=== PATIENT | female | born 1995 | race Caucasian/White ===

== ENCOUNTER 2019-01-14 11:04 | Emergency (ER) | payer MEDICAID, SELFPAY ==
[2019-01-14 11:05] VITALS: BP 135/80; PULSE 86; RESP 18; TEMP 36.4; O2SAT 97; BMI 31.1
--- NOTE | 2019-01-14 12:01 | US_ITS ---
STUDY: FIRST TRIMESTER OBSTETRICAL ULTRASOUND REASON FOR EXAM: Female, 23 years old. Bleeding. LMP: January 05, 2019. TECHNIQUE: Transvaginal TECHNICAL QUALITY: Adequate. PRIOR ULTRASOUND: None. FINDINGS: There is no demonstrated intrauterine gestational sac. There is no demonstrated yolk sac. The placenta is non-visualized. There is no demonstrated embryo ( pole). The uterus measures 8.1 cm x 5.4 cm x 4.4 cm. There is no demonstrated uterine fibroid. The cervix is open. Fluid is seen within the endometrium. The right ovary measures 3.1 cm x 2.3 cm x 1.6 cm. There is a 1.3 cm x 1.2 cm x 1.1 cm follicle. There is no visualized right adnexal mass or complex lesion. The left ovary measures 3.6 cm x 2.9 cm x 1.3 cm. There is no left ovarian cyst. There is no visualized left adnexal mass or complex lesion. Mild to moderate degree of free fluid in the cul-de-sac. US/Transvaginal w/Preg US IMPRESSION: No intrauterine gestation is seen at this time. Dominant follicle in the right ovary. The cervix is open with a small amount of fluid within the endocervical canal. Findings are suggestive of a spontaneous . Correlation with beta hCG is recommended. Electronically Signed: Julian Henriquez, at 14:04 EDT , Service support ,
--- NOTE | 2019-01-14 12:03 | ED.DCSUM_ITS ---
History of Present Illness Chief Complaint: Vag Bld, Preg Informant: Patient Onset: Today Current Severity: Mild Narrative: Patient reports having cramping vaginal bleeding for about a day or 2, she indicates she took some home test and they were positive for few times, she believes she is 2 to 3 weeks , [facility] she indicates they pari a serum blood test she does not have those results and they discharged her home she was concerned that that was insufficient evaluation and she came to the emergency department. 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 and history of ectopic her menstrual cycles usually on time she has no other complaints Past Medical History - Allergies and Home Meds Allergies/Adverse Reactions: Allergies No Known Allergies Allergy (Verified 01/14/19 11:05) Primary Care Physician: Vidhya Mendez PA [Primary Care Provider] - Past Medical History: - - She denies as above see above Smoking Status: Current some day smoker Review of Systems General: Denies: Chills, Fever, Sweats Eyes: Denies: Visual changes - bilaterally, Diplopia ENT: Denies: Rhinorrhea, Sore throat Cardiovascular: Denies: Chest pain, Palpitations Respiratory: Denies: Dyspnea, Cough, Dyspnea on exertion Gastrointestinal: Denies: Abdominal pain, Nausea, Vomiting, Diarrhea, Melena, Hematochezia Genitourinary: Denies: Dysuria, Hematuria, Frequency Musculoskeletal: Denies: Back pain, Extremity Pain Skin: Denies: Rash, Wounds Neurological: Denies: Headache, Weakness, Numbness Physical Exam Vital Signs/Narrative: Vital Signs Temp Pulse Resp BP Pulse Ox 01/14/19 11:05 97.6 F L 86 18 135/80 H 97 General: Well nourished, Well developed, No Acute Distress Head: Normocephalic, Atraumatic Eyes: Perrl, EOMI ENT: Moist mucous membranes, No rhinorrhea Neck: Supple, Nontender Cardiovascular: Regular rate, Regular rhythm, No murmurs Respiratory: No distress, CTA bilaterally, Chest nontender Abdomen: Soft, Nontender, Nondistended, Normal bowel sounds : - - Deferred at this time she is no abdominal discomfort Back: Nontender, Normal Inspection Extremities: Nontender, No edema Skin: Normal color, No rash Neurological: Alert, Oriented x3, Cranial nerves II-XII grossly intact, Normal Strength, Normal Sensation Psychological: Normal affect, Normal Mood Diagnostic/Tx/Re-eval - Medical Decision Making The patient will undergo screening labs quant hCG ultrasound reevaluation on. Her screening labs are generally unremarkable her quant is 121, her pelvic ultrasound shows no signs of intrauterine , no signs of ectopic no free fluid the cervix appears open with fluid in it consistent with possible spontaneous AB see those reports She is deferred pelvic exam I have explained all the above to her that the exact etiology of bleeding remains unclear she needs repeat quant and follow-up with her humanities coordinator to the [facility] system in the next few days Tylenol for pain and return for change in symptoms and she agrees and understands Home stable Final impression with vaginal bleeding ED Disposition - Plan for ED Patient: Diagnosis: Vaginal bleeding during Instructions: POSSIBLE MISCARRIAGE (Threatened ) Referrals: Vidhya Mendez PA [Primary Care Provider] - Additional Instructions: Tylenol for pain, please follow-up with your [facility] gynecology service in a day or 2 for repeat test and further management return for change in symptoms
[2019-01-14 13:12] LABS: Absolute Lymphocyte Count 1.76 X10^3/uL (0.83-4.51); Basophil# 0.01 X10^3/uL; Basophil% 0.2 % (0-1); Eosinophils% 1.6 % (0-5); Hematocrit 41.5 % (37-47); Hemoglobin 14.3 g/dL (12.0-15.0); Lymphocyte # 1.76 X10^3/ul (4.0); Lymphocyte % 28.2 % (19-41); Mean Corp Hgb Conc 34.5 g/dL (32-36); Mean Corpuscular Hgb 30.6 pg (27.0-32.0); Mean Corpuscular Volume 88.9 fL (81-99); Mean Platelet Vol. 10.8 fl (6.2-12.0); Monocyte# 0.38 X10^3/uL; Monocyte% 6.1 % (0-10); NRBC Flagged by Analyzer 0 % (0-5); Neutrophil # 3.98 X10^3/uL (2.7-7.7); Neutrophil % 63.6 % (47-70); Platelet Count 205 K/mm3 (150-450); RBC Distribution Width CV 11.9 % (11.6-14.6); RBC Distribution Width SD 38.5 fl (35.1-43.9); Red Blood Count 4.67 M/mm3 (4.2-5.4); White Blood Count 6.3 K/mm3 (4.4-11.0)
[2019-01-14 13:26] LABS: hCG Titer Quant., Serum 121 mIU/mL (1-3)
[2019-01-14 13:59] LABS: Bacteria 0 SEEN /hpf (None Seen); Mucous, Urine 0 SEEN /hpf (<or=2+); White Blood Cells 0 SEEN /hpf (0-5)
[2019-01-14 14:03] LABS: Color, Urine Yellow (Yellow); Glucose, Dipstick Normal (Normal); Ketone-Dipstick Negative (Negative); Leukocyte Esterase-Dipstick Negative /ul (Negative); Nitrite-Dipstick Negative (Negative); Occult Blood-Urine 50 /ul (Negative); Protein-Dipstick Negative (Negative); Urine Bilirubin Dipstick Negative (Negative); Urine Clarity Clear (Clear); Urine Urobilinogen Normal (Normal)
[2019-01-14 14:17] VITALS: RESP 18
[2019-01-14 14:21] LABS: Red Blood Cells-Urine 0-5 SEEN /hpf (0-5); Squamous Epithelial Cells - UA 0-5 SEEN /hpf (5-10)
[2019-01-14 14:49] VITALS: PULSE 64; RESP 16; O2SAT 100
== END 2019-01-14 14:49 | disposition home or self-care (01) ==
PROVIDERS: Emergency Provider Emergency Medicine; Family Provider Physician Assistant Medical; PCP Physician Assistant Medical
DX: O20.9 Hemorrhage in early pregnancy, unspecified (principal); O99.330 Smoking (tobacco) complicating pregnancy, unspecified trimester; F17.200 Nicotine dependence, unspecified, uncomplicated; Z3A.00 Weeks of gestation of pregnancy not specified
CPT/HCPCS: 76817; 81001; 84702; 85025; 86900; 99282

== ENCOUNTER → 2020-08-10 | Outpatient (CLI) | payer BC, MEDICAID, SELFPAY | END | disposition home or self-care (01) | LOC: LABSPEC 15:51 | PROVIDERS: PCP Physician Assistant Medical; Referring Provider Obstetrics & Gynecology; Visit Provider Obstetrics & Gynecology | DX: Z03.818 Encounter for observation for suspected exposure to other biological agents ruled out (principal) | CPT/HCPCS: 87635; C9803; U0005; U0003 ==

== ENCOUNTER 2020-08-17 09:40 | Inpatient (IN) | payer BC, MEDICAID, SELFPAY ==
--- NOTE | 2020-08-15 16:26 | HP.PCM_ITS ---
History Date of Admission: 08/17/20 Final KASSANDRA: 08/24/20 Gestational age: 39 Weeks History of this : Patient presents for repeat Surgical History: Surgical History (Last Updated 08/15/20 @ 16:[address] Juan José Pascal MD) Previous section Z98.891 Allergies No Known Allergies Allergy (Verified 01/14/19 11:05) Home Medications: Home Medications Hydrocodone Bitart/Apap 5-325 [[place] 5MG-325MG] 1 tablet PO Q6H PRN PRN #20 tablet 07/30/16 Multivitamin [Daily Multiple Vitamin] 1 each PO DAILY 07/30/16 Smoking Status: Former smoker History Past Pregnancies: Past Pregnancies Delivery Date Name GA/ Weeks Outcome Route Wt Infant Sex Labor Length Anesthesia Delivery Location Provider FOB Labs: See [facility] H&P Physical Exam General: Alert, Oriented x3 Cardiovascular: Regular rate, Regular Rhythm Lungs: Clear to auscultation, Normal air movement Abdomen: Soft, Non Tender, Non-Distended, Gravid Neurological: Cranial nerves II-XII grossly intact 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 Admit to L&D Proceed with repeat - informed consent signed LGA with polyhydramnios COVID test ordered Routine care
[2020-08-17] VITALS (17 sets, daily range): BP systolic 94–153; BP diastolic 41–99; PULSE 63–96; RESP 16–18; TEMP 36.1–36.7; O2SAT 95–98; BMI 37.3
[2020-08-17] MEDS: Lactated Ringers 1,000 ML 999 ML IV (10:00)
[2020-08-17 10:19] LABS: Absolute Lymphocyte Count 2.11 X10^3/uL (0.83-4.51); Basophil# 0.02 X10^3/uL; Basophil% 0.2 % (0-1); Eosinophil# 0.08 X10^3/uL; Eosinophils% 0.8 % (0-5); Hematocrit 35.6 % (37-47); Hemoglobin 11.6 g/dL (12.0-15.0); Lymphocyte # 2.11 X10^3/ul (4.0); Lymphocyte % 20.9 % (19-41); Mean Corp Hgb Conc 32.6 g/dL (32-36); Mean Platelet Vol. 11.7 fl (6.2-12.0); Monocyte# 0.86 X10^3/uL; Monocyte% 8.5 % (0-10); NRBC Flagged by Analyzer 0 % (0-5); Neutrophil # 6.95 X10^3/uL (2.7-7.7); Neutrophil % 68.9 % (47-70); Platelet Count 233 K/mm3 (150-450); RBC Distribution Width CV 12.8 % (11.6-14.6); RBC Distribution Width SD 41.5 fl (35.1-43.9); White Blood Count 10.1 K/mm3 (4.4-11.0)
[2020-08-17] MEDS: Acetaminophen 500 MG Tablet 1000 MG PO ×3 (11:32→23:46)
[2020-08-17] MEDS: Lactated Ringers 1,000 ML 150 ML IV (11:33)
[2020-08-17] MEDS: Sodium Citrate/Citric Acid 30 ML UDC PO (11:48)
[2020-08-17] MEDS: Cefazolin 2 GM in 0.9% Normal Saline 100 ML IV (11:51)
--- NOTE | 2020-08-17 12:33 | OP.PCM_ITS ---
Delivery Classification: Scheduled Final KASSANDRA: 08/24/20 - start time 1210 end time 1248 Final KASSANDRA Source: US <20 weeks Gestational age: 39 Weeks and 0 Days flying teacher: Aaron Simpson Type of Anesthesia:: Spinal Special Medications: none Implants Used: none Date of Procedure: 08/17/20 - Repeat Low Transverse C/S Pre-Operative Diagnosis: Term gestation, Previous CS, LGA fetus Post-Operative Diagnosis: Same, Macrosomia Indications: LGA, Term gestation Indications for : Repeat Elective Description of Procedure: After informed consent was obtained the patient was taken the operating room she was given spinal anesthesia. She was then placed in the supine position. She was prepped and draped in the normal sterile fashion. Anesthesia was found to be adequate. At this time a Pfannenstiel skin incision was made with a knife was carried down to the underlying layer of the fascia. The fascial incision was then extended laterally using curved [place] scissor. attension was then turned to the superior aspect of the fascial edge was grasped with 2 straight [place] clamps tented up and the rectus muscle dissected off sharply using curved [place] scissor. Attention was then turned to the inferior aspect where again Petra clamps were placed in the rectus muscles were tented up and the fascia was dissected off sharply using the curved [place] scissor. Rectus muscles were then in the midline sharply and peritoneum was entered bluntly. Gentle opposing traction was placed. At this time the vesicouterine peritoneum was identified. Scalpel was used to make a uterine incision in a low transverse fashion. The uterus was then entered bluntly gentle opposing traction was placed to extend this incision. Membranes were ruptured clear. Infant's head was brought to the uterine incision was delivered atraumatically. delayed cord clamping performed. infants nose and mouth suctioned. Cord was clamped and cut infant was handed to the waiting nursery team. The Placenta was removed from the uterus. The uterus was then removed from the abdominal cavity. The uterus was cleared of all clots and debris using a lap. At this time the uterine incision was reapproximated using #1 Vicryl in a running locked fashion. followed by a second imbricating layer with 1-0 vicryl. Hemostasis was appreciated. Posterior cul-de-sac was then cleared of all clots and debris. Uterus was placed back in the abdominal cavity. Gutters were cleared of all clots and debris. Uterine incision was reevaluated and noted to be of excellent hemostasis. At this time the peritoneum and muscle were grasped with Kellys reapproximated using #2 Vicryl suture in a running fashion. Fascia was then reapproximated using #1 Vicryl in a running fashion. Subcu layer was reapproxim ated with #2 0 plain gut suture in an interrupted fashion. Subcu layer was closed using 4-0 Monocryl in a subcu fashion. Dry sterile dressing was applied. Instrument lap needle count correct ?2. Anticipated normal postoperative course. Amniotic Membrane Rupture Type: Artificial Amniotic Fluid Description: Clear Placenta Disposition: [facility] Specimen(s) sent to pathology: none Drain: Ulrich to straight drain Fluids Replaced: 1000cc Cord Entanglement: None Cord Vessel Description: 3 Vessels Esitmated Blood Loss (ml): 650 Gender: Male (1 minute): 8 - weight 10lb 3oz (5 minute): 9 Antibiotic Given: Ancef 2 grams IV x1 Pt instructed on risks of surgery: Bleeding, Anesthesia Risks, Infection, Need for Future C-Sections, Injury to surrounding structure(s) including bowel and bladder Complications: None - Admit VTE Documentation VTE Present on Admission: Yes VTE Mechan Device Prophylaxis: SCD's VTE Pharm Prophylaxis ordered?: Yes
[2020-08-17] MEDS: Oxytocin 30 units/NS 500 ml 30 UNITS/500 ML IV.SOLN 167 UNITS IV (13:05)
[2020-08-17] MEDS: Lactated Ringers 1,000 ML 100 ML IV (13:20)
[2020-08-17] MEDS: Ketorolac 30 MG/ML Syringe IV (18:48)
[2020-08-17] MEDS: 0.9% Saline Lock 10 ML Syringe IV (18:49)
[2020-08-18] MEDS: 0.9% Saline Lock 10 ML Syringe IV ×3 (00:29→12:50)
[2020-08-18] MEDS: Ketorolac 30 MG/ML Syringe IV ×3 (00:29→12:50)
[2020-08-18] MEDS: Enoxaparin 40 MG/0.4 ML Syringe SC (00:29)
[2020-08-18 00:39] VITALS: BP 96/45; PULSE 77; RESP 18; TEMP 36.5; O2SAT 98
[2020-08-18 04:48] VITALS: BP 95/40; PULSE 75; RESP 18; TEMP 36.7; O2SAT 98
[2020-08-18 05:06] LABS: Hematocrit 31.6 % (37-47); Hemoglobin 10.1 g/dL (12.0-15.0); Mean Corpuscular Hgb 28.7 pg (27.0-32.0); Mean Corpuscular Volume 89.8 fL (81-99); Mean Platelet Vol. 11.2 fl (6.2-12.0); Platelet Count 225 K/mm3 (150-450); RBC Distribution Width CV 12.6 % (11.6-14.6); RBC Distribution Width SD 41.2 fl (35.1-43.9); Red Blood Count 3.52 M/mm3 (4.2-5.4); White Blood Count 16.2 K/mm3 (4.4-11.0)
[2020-08-18] MEDS: Acetaminophen 500 MG Tablet 1000 MG PO ×4 (05:32→23:47)
[2020-08-18 08:19] VITALS: BP 96/43; PULSE 71; RESP 18; TEMP 36.5
--- NOTE | 2020-08-18 08:26 | PCM.PN.OB ---
Subjective: Patient seen at bedside, doing well. Patient reports does have more pain today than yesterday. She has been up ambulating. Voiding without difficulty. Passing flatus. Denies any nausea or vomiting. Breast-feeding. Considering discharge home today. - Physical Exam Vitals/I&O's: Vital Signs Temp Pulse Resp BP Pulse Ox 97.7 F L 71 18 96/43 L 98 08/18/20 08:19 08/18/20 08:19 08/18/20 08:19 08/18/20 08:19 08/18/20 04:48 Oxygen Delivery Method Room Air Weight: 107.955 kg Body Mass Index (BMI) 37.3 Intake and Output for Last 24 Hours 08/16/20 08/17/20 08/18/20 23:59 23:59 23:59 Intake Total 4465 / 4465 Output Total 1400 / 1400 900 / 900 Balance 3065 / 3065 -900 / -900 General: Alert, Oriented x3 Abdomen: Soft, Non Tender, Non-Distended, - - fundus firm, dressing dry and intact Extremities: No Calf Tenderness Neurological: Cranial nerves II-XII grossly intact Laboratory Results 08/17/20 10:00: WBC 10.1, RBC 4.00 L, Hgb 11.6 L, Hct 35.6 L, MCV 89.0, MCH 29.0, MCHC 32.6, RDW Std Deviation 41.5, RDW Coeff of Ira 12.8, Plt Count 233, MPV 11.7, Immature Gran % (Auto) 0.700, Neut % (Auto) 68.9, Lymph % (Auto) 20.9, [place] % (Auto) 8.5, Eos % (Auto) 0.8, Baso % (Auto) 0.2, Absolute Neuts (auto) 7.0, Absolute Lymphs (auto) 2.11, Nucleated RBC % 0 08/17/20 10:00: Blood Type A POSITIVE, Antibody Screen NEGATIVE 08/18/20 05:00: WBC 16.2 H, RBC 3.52 L, Hgb 10.1 L, Hct 31.6 L, MCV 89.8, MCH 28.7, MCHC 32.0, RDW Std Deviation 41.2, RDW Coeff of Ira 12.6, Plt Count 225, MPV 11.2 Current Medications Acetaminophen (Acetaminophen 500 Mg Tablet) 1,000 mg PO Q6H [facility] Last Admin: 08/18/20 05:32 Dose: 1,000 mg Documented by: Bisacodyl (Bisacodyl 10 Mg Suppository) 10 mg RC UD PRN PRN Reason: If no BM Enoxaparin Sodium (Enoxaparin 40 Mg/0.4 Ml Syringe) 40 mg SC DAILY@0100 [facility] Last Admin: 08/18/20 00:29 Dose: 40 mg Documented by: Hydrocortisone (Hydrocortisone 2.5% Crm) 1 applic TOPICAL TID PRN PRN; Protocol PRN Reason: Discomfort Lactated Ringer's () 1,000 mls @ 100 mls/hr IV .Q10H [facility] Last Admin: 08/17/20 23:47 Dose: Not Given Documented by: Ibuprofen (Ibuprofen 600 Mg Tablet) 600 mg PO Q6H [facility] Ketorolac Tromethamine (Ketorolac 30 Mg/Ml Syringe) 30 mg IV Q6H [facility]; Protocol Stop: 08/18/20 12:31 Last Admin: 08/18/20 06:32 Dose: 30 mg Documented by: Methylergonovine Maleate (Methylergonovine 0.2 Mg/Ml Ampul) 0.2 mg IM X1 PRN PRN Reason: Uterine Atony Ondansetron HCl (Ondansetron 4 Mg/2 Ml Vial) 4 mg IV Q4H PRN PRN PRN Reason: Nausea Oxycodone HCl (Oxycodone 5 Mg Tablet) 5 - 10 mg PO Q4H PRN PRN PRN Reason: Pain Score 4-10 Prochlorperazine Edisylate (Prochlorperazine 10 Mg/2 Ml Vial) 10 mg IV Q6H PRN PRN PRN Reason: NAUSEA Senna/Docusate Sodium (Senna/Docusate Sodium 1 Tablet) 1 - 2 tablet PO DAILY [facility] Simethicone (Simethicone 80 Mg Tablet) 80 mg PO P[facility]S PRN PRN Reason: Indigestion/stomach pain Sodium Chloride (0.9% Saline Lock 10 Ml Syringe) 5 - 15 ml IV UD PRN PRN Reason: SALINE FLUSH Last Admin: 08/18/20 06:33 Dose: 10 ml Documented by: Medical Necessity - Tobacco Use Smoking Status: Former smoker Assessment/Plan POD#1, doing well- some Post op pain 1) routine Post care 2) pain mgmt 3) abdominal binder 4) possible dc home today or tomorrow
--- NOTE | 2020-08-18 08:31 | PCM.DCCSEC ---
Discharge Diet: No Restrictions Discharge Activity: Return to Normal Activity, May Not Drive - for 2 weeks, May not drive while taking narcotic pain medications., May Shower, May Take a Tub Bath - in 7 days. May resume sexual activity in: 4-6 weeks Lifting Restrictions: 20 pounds Additional Activity Instructions:: Nothing in the vagina for 4-6 weeks. You may return to work/school in 6 weeks. Call your doctor if your incision/area has: Continuous Slow Oozing, Sudden Increased Bleeding, Increased Pain/ Swelling, Increased Redness, Foul Smelling Discharge Call your doctor if you observe: Fever of 101 or Higher, Using more than one pad per hour - for 2 hours Suture Line Care: Avoid Pulling/Pushing, Avoid Pinching/Bending Cleanse incision/area with: Keep Dressing Clean & Dry - remove dressing on post op day #7 unless saturated before that. Additional Instructions: If you experience any of the following, contact your healthcare provider. Bleeding that soaks a pad every hour for 2 hours Fever 100.4 or higher Unrelieved incision or abdominal pain Swelling, redness, discharge or bleeding from your incision or episiotomy site Your incision begins to separate Problems urinating (including inability to urinate or burning while urinating). Visual changes Severe headache Flu-like symptoms Pain or redness in one of both of your breasts Pain, warmth, tenderness or swelling in your legs, especially the calf area Frequent nausea and vomiting Symptoms of depression or anxiety If you experience any of the following, call 911 or go to the nearest Emergency Room. Chest pain Problems breathing Seizure activity Partial or complete paralysis of a body part, slurred speech, weakness or drooping of the face, or a sudden inability to walk or hold your balance Allergies/Adverse Reactions: Allergies No Known Allergies Allergy (Verified 08/17/20 10:15) Medications to take at Discharge Multivitamin [Daily Multiple Vitamin] 1 each PO DAILY 07/30/16 Omeprazole Magnesium [Prilosec Otc] 20 mg 08/17/20 Acetaminophen [Tylenol] 1,000 mg PO Q6H #60 tab 08/18/20 Ibuprofen [Motrin] 600 mg PO Q6H #60 tab 08/18/20 Oxycodone [Oxyir] 5 - 10 mg PO Q4H PRN PRN 5 Days #14 tablet 08/18/20 Senna/Docusate Sodium [Senokot-S] 1 - 2 tab PO DAILY #30 tab 08/18/20 SimETHICONE [Mylicon] 80 mg PO [facility]S PRN #30 tab 08/18/20 The following prescriptions were given: Ibuprofen [Motrin] 600 mg PO Q6H #60 tab Transmission Status: Pending to [id number] SimETHICONE [Mylicon] 80 mg PO PCHS PRN #30 tab PRN Reason: Indigestion/stomach pain Transmission Status: Pending to [facility] Oxycodone [Oxyir] 5 - 10 mg PO Q4H PRN PRN 5 Days #14 tablet PRN Reason: Pain Score 4-10 Transmission Status: Sent to [facility] Senna/Docusate Sodium [Senokot-S] 1 - 2 tab PO DAILY #30 tab Transmission Status: Pending to [facility] Acetaminophen [Tylenol] 1,000 mg PO Q6H #60 tab Transmission Status: Pending to [facility] Follow-Up: Call to make an appointment with your doctor for an incision check in 1-2 weeks. You will also need a 6 week post- follow up appointment. Test results from this visit will be discussed in further detail at your follow-up appointment, if applicable. Please Follow Up With: Sylvia Neal MD - Call to make an appointment for an incision check in 1-2 [phone] When: You will need a post- check in 6 weeks. Primary Care Physician: iVdhya Mendez PA [Primary Care Provider] -
[2020-08-18] MEDS: Senna/Docusate Sodium 1 Tablet PO ×2 (11:02→11:37)
[2020-08-18 11:34] VITALS: BP 111/61; PULSE 79; RESP 16; TEMP 36.6
[2020-08-18 13:42] VITALS: BP 115/48; PULSE 73; RESP 18; TEMP 36.6
[2020-08-18] MEDS: oxyCODONE 5 MG Tablet PO ×2 (13:57→20:13)
[2020-08-18] MEDS: Ibuprofen 600 MG Tablet PO (18:25)
[2020-08-18 20:07] VITALS: BP 106/54; PULSE 79; RESP 18; TEMP 36.6
--- NOTE | 2020-08-18 20:17 | NURSING ---
Pt did not want this nurse to check fundal height at this time d/t being in too much pain.
[2020-08-19] MEDS: Ibuprofen 600 MG Tablet PO ×3 (00:35→11:46)
[2020-08-19] MEDS: Enoxaparin 40 MG/0.4 ML Syringe SC (00:35)
[2020-08-19 02:03] VITALS: BP 99/42; PULSE 81; RESP 18; TEMP 36.7
[2020-08-19] MEDS: Acetaminophen 500 MG Tablet 1000 MG PO ×2 (05:37→11:47)
--- NOTE | 2020-08-19 07:48 | PCM.PN.OB ---
Subjective: Patient seen at bedside, doing well. Patient reports good pain control. Mild lochia. Jdbixm-[id number]-[id number] difficulty with sore nipples but getting better. Patient denies any nausea or vomiting. Patient is ready for DC home today. - Physical Exam Vitals/I&O's: Vital Signs Temp Pulse Resp BP Pulse Ox 98.0 F 81 18 99/42 L 98 08/19/20 02:03 08/19/20 02:03 08/19/20 02:03 08/19/20 02:03 08/18/20 04:48 Oxygen Delivery Method Room Air Weight: 107.955 kg Body Mass Index (BMI) 37.3 Intake and Output for Last 24 Hours 08/17/20 08/18/20 08/19/20 23:59 23:59 23:59 Intake Total 4465 / 4465 Output Total 1400 / 1400 900 / 900 Balance 3065 / 3065 -900 / -900 General: Alert, Oriented x3 Abdomen: Soft, Non-Distended, - - fundus firm. Dressing dry and intact Extremities: No Calf Tenderness Neurological: Cranial nerves II-XII grossly intact Current Medications Acetaminophen (Acetaminophen 500 Mg Tablet) 1,000 mg PO Q6H [facility] Last Admin: 08/19/20 05:37 Dose: 1,000 mg Documented by: Bisacodyl (Bisacodyl 10 Mg Suppository) 10 mg RC UD PRN PRN Reason: If no BM Enoxaparin Sodium (Enoxaparin 40 Mg/0.4 Ml Syringe) 40 mg SC DAILY@0100 [facility] Last Admin: 08/19/20 00:35 Dose: 40 mg Documented by: Hydrocortisone (Hydrocortisone 2.5% Crm) 1 applic TOPICAL TID PRN PRN; Protocol PRN Reason: Discomfort Ibuprofen (Ibuprofen 600 Mg Tablet) 600 mg PO Q6H [facility] Last Admin: 08/19/20 06:30 Dose: 600 mg Documented by: Methylergonovine Maleate (Methylergonovine 0.2 Mg/Ml Ampul) 0.2 mg IM X1 PRN PRN Reason: Uterine Atony Ondansetron HCl (Ondansetron 4 Mg/2 Ml Vial) 4 mg IV Q4H PRN PRN PRN Reason: Nausea Oxycodone HCl (Oxycodone 5 Mg Tablet) 5 - 10 mg PO Q4H PRN PRN PRN Reason: Pain Score 4-10 Last Admin: 08/18/20 20:13 Dose: 10 mg Documented by: Prochlorperazine Edisylate (Prochlorperazine 10 Mg/2 Ml Vial) 10 mg IV Q6H PRN PRN PRN Reason: NAUSEA Senna/Docusate Sodium (Senna/Docusate Sodium 1 Tablet) 1 - 2 tablet PO DAILY [facility] Last Admin: 08/18/20 11:37 Dose: 1 tablet Documented by: Simethicone (Simethicone 80 Mg Tablet) 80 mg PO [facility] PRN PRN Reason: Indigestion/stomach pain Sodium Chloride (0.9% Saline Lock 10 Ml Syringe) 5 - 15 ml IV UD PRN PRN Reason: SALINE FLUSH Last Admin: 08/18/20 12:50 Dose: 10 ml Documented by: Medical Necessity - Tobacco Use Smoking Status: Former smoker Assessment/Plan POD#2, doing well routine care pain mgmt dc home
[2020-08-19 08:00] VITALS: BP 116/53; PULSE 79; RESP 16; TEMP 36.9
[2020-08-19] MEDS: oxyCODONE 5 MG Tablet PO (13:12)
[2020-08-19 13:13] VITALS: BP 104/63; PULSE 88; RESP 14; TEMP 37
--- NOTE | 2020-08-19 17:02 | PCM.DC.BLA ---
Discharge Summary Date of Admission: 08/17/20 Date of Discharge: 08/19/20 Summary: pt for a repeat low transverse section at 39 weeks gestation. Patient underwent an uncomplicated repeat low transverse section with a live male infant born weighing 10 pounds 3 ounces. Patient had an uncomplicated postoperative course and was discharged home on postoperative day #2. - Physical Exam Vitals/I&O's: Vital Signs Temp Pulse Resp BP Pulse Ox 98.6 F 88 14 104/63 98 08/19/20 13:13 08/19/20 13:13 08/19/20 13:13 08/19/20 13:13 08/18/20 04:48 Oxygen Delivery Method Room Air Weight: 107.955 kg Body Mass Index (BMI) 37.3 Intake and Output for Last 24 Hours 08/17/20 08/18/20 08/19/20 23:59 23:59 23:59 Intake Total 4465 / 4465 Output Total 1400 / 1400 900 / 900 Balance 3065 / 3065 -900 / -900
== END 2020-08-19 14:00 | disposition home or self-care (01) | DRG 788 ==
PROVIDERS: Admitting Provider Obstetrics & Gynecology; PCP Physician Assistant Medical; Referring Provider Obstetrics & Gynecology; Visit Provider Obstetrics & Gynecology
PROC: 10D00Z1 Extraction of Products of Conception, Low, Open Approach (ICD-10-PCS; CPT 59514; principal; 2020-08-17 11:45)
DX: O40.3XX0 Polyhydramnios, third trimester, not applicable or unspecified (principal); Z3A.39 39 weeks gestation of pregnancy; Z37.0 Single live birth
CPT/HCPCS: 85025; 85027; 86850; 86900; 86901; 99218; 99251; J7120; A4216; G0378; G0463; J2405

== ENCOUNTER 2023-11-04 11:49 | Emergency (ER) | payer BC, MEDICAID, SELFPAY ==
[2023-11-04 11:50] VITALS: BP 119/76; PULSE 65; RESP 14; TEMP 35.7; O2SAT 100; BMI 26.3
--- NOTE | 2023-11-04 12:13 | EDS_ITS ---
HPI History of Present Illness Chief Complaint: Chest Other Detail of Chief Complaint: Possible heart murmur Informant: patient Narrative Narrative: Patient sent from local psychiatry office due to possible heart murmur. The reportedly was a nurse practitioner or PA checking the patient's blood pressure manually. She called in to tell us that she heard a murmur when checking the patient's blood pressure in her left arm but not in her right arm. Patient was sent in for an EKG and further evaluation as needed. Patient denies any chest or arm pain. [facility] Medical History Depression Obesity Home Medications ?Medication ?Instructions ?Recorded ?Last Taken ?Type multivitamin (Daily Multiple 1 ea PO DAILY 07/30/16 07/30/16 History tablet) omeprazole magnesium 20 mg 20 mg Check with primary doctor 08/17/20 Unknown History tablet,delayed release acetaminophen 500 mg tablet 1,000 mg (2 x 500 mg) PO Q6H #60 08/18/20 Unknown Rx tabs ibuprofen 600 mg tablet 600 mg PO Q6H #60 tabs 08/18/20 Unknown Rx sennosides 8.6 mg-docusate sodium 1 - 2 tab PO DAILY #30 tabs 08/18/20 Unknown Rx 50 mg tablet simethicone 80 mg chewable tablet 80 mg PO PCHS PRN 08/18/20 Unknown Rx Indigestion/stomach pain #30 tabs Allergy/AdvReac Type Severity Reaction Status Date / Time No Known Allergies Allergy Verified 08/17/20 10:15 Surgical History Previous section Social History Smoking Status: Former smoker ROS ROS ED Constitutional Constitutional ED: Denies chills or fever(s) Eyes Eyes: Denies discharge from eye(s) ENT ENT ED: Denies discharge from eye(s), rhinorrhea or sore throat Cardiovascular Cardiovascular: Denies chest pain or palpitations Respiratory/Chest Respiratory/Chest: Denies cough or dyspnea Gastrointestinal Gastrointestinal: Denies abdominal pain, nausea or vomiting Musculoskeletal Musculoskeletal: Denies extremity pain Integumentary Denies Abrasions or rash Neurologic Neurologic: Denies headache(s) or weakness Allergic/Immunologic Allergic/Immunologic ED: Denies lip swelling or urticaria EXAM Physical Exam Const Vital Signs: 11/04/23 11:50 Temperature 96.3 F L Temperature Source Temporal Pulse Rate 65 Respiratory Rate 14 Blood Pressure 119/76 Blood Pressure Mean 90 Pulse Ox 100 Oxygen Delivery Method Room Air Positive well nourished and well developed General Appearance ED: well developed HEENT Reports moist mucous membranes Chest Wall inspection of chest normal and palpation of chest normal Resp normal respiratory effort and clear to auscultation bilaterally Cardio regular rate and regular rhythm GI non-tender Palpation: soft Extremity Extremity Narrative: Strong distal pulses throughout. Neuro oriented x3 and no sensory deficits noted Motor Exam: strength 5/5 throughout Psych mental status grossly normal Skin no rashes or lesions noted MDM MDM MDM Narrative Medical decision making narrative: EKG was obtained per nursing protocol. Sinus bradycardia 58 bpm is noted with no acute ischemia. At the time of my exam I hear no cardiac murmurs. I even took the patient's manual blood pressure bilaterally. She has appropriate sounds noted with releasing the pressure for the blood pressure cuff. I described to the patient how a blood pressure is obtained and we listen for the blood to start flowing through the artery after it has been compressed. This will sometimes sound like a murmur as the blood flows through quickly. Patient has had no arm pain, paresthesias, or coolness. I do not suspect that she has any kind of an arterial blockage. Patient was reassured with our evaluation and will follow with her primary care physician. Discharge Plan Triage Chief Complaint: Chest Other ED Provider: Yvette Malone Dx/Rx/DC Orders Clinical Impression: Encounter for medical screening examination Prescriptions: No Action multivitamin [Daily Multiple] 1 EACH tablet 1 ea PO DAILY omeprazole magnesium 20 MG tablet,delayed release (DR/EC) 20 mg sennosides-docusate sodium 1 TABLET tablet 1 - 2 tab PO DAILY Qty: 30 0RF acetaminophen 500 MG tablet 1,000 mg PO Q6H Qty: 60 0RF ibuprofen 600 MG tablet 600 mg PO Q6H Qty: 60 0RF simethicone 80 MG tablet 80 mg PO PCHS PRN (Reason: Indigestion/stomach pain) Qty: 30 0RF Primary Care Provider: Vidhya Mendez Referrals: Vidhya Mendez PA [Primary Care Provider] - As Needed Activity Restrictions/Additional Instructions: As discussed, your EKG is normal. Your heart sounds are normal. You have strong pulses in both arms with no evidence of blockage to the vessels. Print Language: Scottish Disposition Disposition: Home, Self Care
--- NOTE | 2023-11-04 12:17 | EKG12_ITS ---
Test Reason : Blood Pressure : / mmHG Vent. Rate : 058 BPM Atrial Rate : 058 BPM P-R Int : 144 ms QRS Dur : 080 ms QT Int : 422 ms P-R-T Axes : 061 041 049 degrees QTc Int : 414 ms Sinus bradycardia Otherwise normal ECG Confirmed by Ian Ahn ([id number]), online content editor PAPITO FORDE [id number]) on 11/05/2023 1:08:25 PM Referred By: Confirmed By:Ian Ahn
== END 2023-11-04 12:44 | disposition home or self-care (01) ==
LOC: ED 12:25
PROVIDERS: Emergency Provider Emergency Medicine; PCP Physician Assistant Medical; Visit Provider Emergency Medicine
DX: Z00.00 Encounter for general adult medical examination without abnormal findings (principal); Z87.891 Personal history of nicotine dependence
CPT/HCPCS: 93005; 99282